=== PATIENT | female | born 1970 | race Caucasian/White ===

== ENCOUNTER 2018-03-09 03:14 | Emergency (ER) | payer MEDICAID, OTHER ==
[~2018-03-09] VITALS: Wt 82.2 kg
[2018-03-09] MEDS ORDERED: KETOROLAC 30 MG INJ IV STA (03:39)
--- NOTE | 2018-03-09 05:05 | ERD ---
ER Documentation Chief Complaint Chief Complaint L SIDE ABD PAIN RADIATING TO BACK HPI This is a 47-year-old female presents to the emergency room for evaluation of abdominal pain. The patient states that her abdominal pain is been present for the past 24 hours. She localizes it to the left side of the abdomen and describes as an achy pain with no radiation. She denies any nausea, vomiting, dysuria or urinary frequency associated with this. She came to the emergency room today for evaluation of her symptoms. She states that she has been taking [id number] pain medicine which has not helped. ROS All systems reviewed and are negative except as per history of present illness. Allergies Allergies: Coded Allergies: No Known Allergy (Unverified , 03/09/18) PMhx/Soc History of Surgery: Yes (cholecystectomy, hystorectomy, left knee, right index finger) Anesthesia Reaction: No Hx Neurological Disorder: No Hx Respiratory Disorders: No Hx Cardiac Disorders: Yes (htn) Hx Psychiatric Problems: No Hx Miscellaneous Medical Probl: No Hx Alcohol Use: Yes (socially) Hx Substance Use: No Hx Tobacco Use: No Smoking Status: Current every day smoker Physical Exam Vitals Vital Signs Date Temp Pulse Resp B/P (MAP) Pulse Ox O2 O2 Flow FiO2 Time Delivery Rate 03/09/18 97.1 65 18 138/78 99 03:18 (98) Physical Exam INITIAL VITAL SIGNS: Reviewed by me GENERAL: The patient is well developed and appropriate for usual state of health in no apparent distress HEENT: Pupils equal, round, and reactive to light. EOMI. There is no scleral icterus. NECK: C-spine is soft and supple, there is no meningismus. There is no cervical lymphadenopathy. LUNGS: Clear to auscultation bilaterally. There are no rales, wheezes or rhonchi. HEART: Regular rate and rhythm, no murmurs, clicks, rubs or gallops. ABDOMEN: Mild left-sided CVAT, soft, non-tender, non-distended. There are bowel sounds in all four quadrants. No rebound or guarding. EXTREMITIES: There is no peripheral cyanosis or edema. No focal swelling or erythema. NEUROLOGICAL: The patient moves all four extremities with 5/5 strength. Cranial nerves II - XII are intact. Normal gait. Alert and oriented SKIN: There is no apparent rash or petechiae. HEME/LYMPHATIC: There is no evidence of excessive bruising or lymphedema. PSYCHIATRIC: The patient does not appear anxious or depressed. Result Diagram: 03/09/18 0354 03/09/18 0354 Results 24 hrs Laboratory Tests Test 03/09/18 03:47 03/09/18 03:54 POC Beta HCG, Qualitative NEGATIVE White Blood Count 6.5 10^3/ul Red Blood Count 3.85 10^6/ul Hemoglobin 11.6 g/dl Hematocrit 34.8 % Mean Corpuscular Volume 90.4 fl Mean Corpuscular Hemoglobin 30.1 pg Mean Corpuscular Hemoglobin Concent 33.3 g/dl Red Cell Distribution Width 12.6 % Platelet Count 250 10^3/UL Mean Platelet Volume 10.5 fl Immature Granulocytes % 0.300 % Neutrophils % 55.4 % Lymphocytes % 34.2 % Monocytes % 8.0 % Eosinophils % 1.9 % Basophils % 0.2 % Nucleated Red Blood Cells % 0.0 /100WBC Immature Granulocytes # 0.020 10^3/ul Neutrophils # 3.6 10^3/ul Lymphocytes # 2.2 10^3/ul Monocytes # 0.5 10^3/ul Eosinophils # 0.1 10^3/ul Basophils # 0.0 10^3/ul Nucleated Red Blood Cells # 0.0 10^3/ul Urine Color YELLOW Urine Clarity CLEAR Urine pH 5.0 Urine Specific [place] 1.010 Urine Ketones NEGATIVE mg/dL Urine Nitrite NEGATIVE mg/dL Urine Bilirubin NEGATIVE mg/dL Urine Urobilinogen NEGATIVE mg/dL Urine Leukocyte Esterase NEGATIVE [place]/ul Urine Hemoglobin NEGATIVE mg/dL Urine Glucose NEGATIVE mg/dL Urine Total Protein NEGATIVE mg/dl Sodium Level 139 mmol/L Potassium Level 3.8 mmol/L Chloride Level 104 mmol/L Carbon Dioxide Level 27 mmol/L Anion Gap 8 Blood Urea Nitrogen 12 mg/dl Creatinine 0.58 mg/dl Est Glomerular Filtrat Rate mL/min > 60 mL/min Glucose Level 96 mg/dl Calcium Level 9.0 mg/dl Total Bilirubin 0.3 mg/dl Direct Bilirubin 0.00 mg/dl Indirect Bilirubin 0.3 mg/dl Aspartate Amino Transf (AST/SGOT) 30 IU/L Alanine Aminotransferase (ALT/SGPT) 33 IU/L Alkaline Phosphatase 47 IU/L Total Protein 6.9 g/dl Albumin 3.8 g/dl Globulin 3.10 g/dl Albumin/Globulin Ratio 1.22 Lipase 115 U/L Current Medications Medications Dose Sig/Marcos Start Time Status Last (Trade) Ordered Route PRN Stop Time Admin Dose Reason Admin Ketorolac 30 mg ONCE STAT 03/09/18 DC 03/09/18 Tromethamine IV 03:39 04:04 (Toradol) 03/09/18 03:41 Procedures/MDM CT abdomen pelvis without: 1. No renal calcifications. No hydronephrosis or evidence of an obstructing stone. 2. No acute process in the imaged abdomen or pelvis. 3. Previous cholecystectomy and hysterectomy. This 47-year-old female presents to the emergency room for evaluation of abdominal pain. On my exam she had left-sided CVAT. Lab work and urinalysis were obtained and are normal. The patient was given IV Toradol however she continued to have some mild pain. A CT of the abdomen and pelvis was obtained which shows no signs of intra-abdominal pathology. There is no blood in the urine suggesting a recently passed stone. This patient could have a muscle strain which is causing her symptoms. The patient will be discharged home with a prescription for Tylenol with codeine. The patient was advised to return to the emergency room anymore for reevaluation she verbalized understanding and feels okay with her plan of care. Differential diagnoses entertained was broad with potential high acuity. Patient has been evaluated for appendicitis, cholecystitis, and other high risk medical and surgical causes of abdominal pain. Ultimately the patient's evaluation is nondiagnostic. Based on the patient's lack of risk factors, as well as the patient's clinical, laboratory, and imaging data, the patient appears to be low risk for these high risk causes of abdominal pain. Departure Diagnosis: Primary Impression: Abdominal pain Additional Impression: Left flank pain Condition: Stable ROGE DUNNE DO Mar 09, 2018 05:05
[2018-03-09] MEDS ORDERED: DOCU-144 PO (05:07)
[2018-03-09] MEDS ORDERED: ACET1TAB40 PO (05:07)
[2018-03-09 05:16] VITALS: BP 124/78; PULSE 57; RESP 18
== END 2018-03-09 05:16 | disposition home or self-care (01) ==
LOC: E/R 03:14
DX: R10.9 Unspecified abdominal pain (principal); I10 Essential (primary) hypertension; F17.210 Nicotine dependence, cigarettes, uncomplicated
CPT/HCPCS: 36415; 74176; 80053; 81003; 81025; 83690; 85025; 96374; J1885; Z7502